=== PATIENT | female | born 1975 | race Caucasian/White ===

== ENCOUNTER 2018-07-14 15:56 | Emergency (ER) | payer MEDICAID ==
[~2018-07-14] VITALS: Ht 152.4 cm; Wt 68.0 kg
[~2018-07-14 15:56] MED LIST: CARI350T PO; DIAZ10TA PO; FENT1PAT5; HYDR4TAB4 PO; ONDA8TAB6 PO; ZOLP10TA2 PO
[2018-07-14 17:39] VITALS: BP 110/75
--- NOTE | 2018-07-14 17:40 | NUR ---
For discharge- ACI given verbalized understanding DC with [employer] for SART consult
== END 2018-07-14 17:40 ==
LOC: ER 15:58
DX: T74.21XA Adult sexual abuse, confirmed, initial encounter (principal); F41.9 Anxiety disorder, unspecified; G43.909 Migraine, unspecified, not intractable, without status migrainosus; Z88.8 Allergy status to other drugs, medicaments and biological substances; Z60.2 Problems related to living alone; Z79.899 Other long term (current) drug therapy
CPT/HCPCS: 99283; A4606; Z7610

== ENCOUNTER 2018-08-31 20:20 | Emergency (ER) | payer BC, MEDICAID ==
[~2018-08-31] VITALS: Ht 152.4 cm; Wt 68.0 kg
--- NOTE | 2018-08-31 20:30 | NUR ---
PT BIB RA. COMP OF "WHILE SHOPPING, I FELT DIZZY AND ALMOST PASSED OUT, SO I LOWERED MYSELF ONTO THE FLOOR". NO SOB NOTED. -N/V. NO NEURO DEFICITS NOTED. NO ACUTE DISTRESS AT THIS TIME. AWAITING MD LOERA.
[2018-08-31 20:43] LABS: BASOPHILS # (AUTO) 0.1 /CMM (0.0-0.2); BASOPHILS % (AUTO) 1.3 % (0.0-2.0); EOSINOPHILS % (AUTO) 6.4 % (0.0-6.0); HEMATOCRIT 28 % (33-45); HEMOGLOBIN 8.9 g/dL (11.5-14.8); LYMPHOCYTES # (AUTO) 1.9 /CMM (0.8-4.8); LYMPHOCYTES % (AUTO) 31.3 % (20.0-44.0); MEAN CORPUSCULAR HGB CONC 32 g/dl (31.0-36.0); MEAN CORPUSCULAR VOLUME 80 fL (82-100); MONOCYTES # (AUTO) 0.3 /CMM (0.1-1.30); NEUTROPHILS # (AUTO) 3.4 /CMM (1.8-8.9); PLATELET COUNT (AUTO) 395 /CMM (150-450); RED BLOOD CELL COUNT(AUTO) 3.48 MIL/uL (4.0-5.2); WHITE BLOOD COUNT (AUTO) 6.1 K/uL (4.3-11.0)
[2018-08-31 20:53] LABS: CALCIUM, SERUM 8.7 mg/dL (8.5-10.1); POTASSIUM 4.8 mmol/L (3.5-5.1)
[2018-08-31 21:35] VITALS: BP 98/72
== END 2018-08-31 21:36 | disposition home or self-care (01) ==
LOC: ER 20:21
DX: E86.0 Dehydration (principal); D64.9 Anemia, unspecified; G43.909 Migraine, unspecified, not intractable, without status migrainosus; G24.3 Spasmodic torticollis; Z88.8 Allergy status to other drugs, medicaments and biological substances; Z88.9 Allergy status to unspecified drugs, medicaments and biological substances
CPT/HCPCS: 36415; 80048-TC; 85025-TC

== ENCOUNTER 2019-01-01 03:36 | Emergency (ER) | payer MEDICAID ==
[~2019-01-01] VITALS: Ht 162.6 cm; Wt 56.7 kg
--- NOTE | 2019-01-01 03:45 | NUR ---
BIB SELF DROPPED OFF BY [facility]AXI COMING FROM [facility]. AAOX4. NAD, BREATHING EVEN AND UNLABORED. C/O NAUSEA, HEADACHE, R HIP PAIN AND R LEG PAIN. PT STATES THE SHE CAME FROM [facility] BECAUSE SHE HAD A FALL. SHE TRIED TO LOOK FOR A PHARMACY TO GET MEDICATION BUT DIDNT GET TO FILL MEDICATION BECAUSE THEY ARE CLOSE. TO ER BED 9. MD AT BEDSIDE FOR EVAL. MEDICAL RECORD FROM [facility] REQUESTED AND PT WILL SIGN RELEASE OF RECORD AUTH.
[2019-01-01] MEDS ORDERED: ONDANSETRON 4 MG TAB.RAPDIS ONE (03:55)
[2019-01-01] MEDS ORDERED: ONDANSETRON 4 MG TAB.RAPDIS SL ONE (04:00)
--- NOTE | 2019-01-01 05:05 | NUR ---
[facility]
[2019-01-01] MEDS ORDERED: KETOROLAC TROMETHAMINE INJ 30 MG/ML VIAL ONE (05:27)
[2019-01-01] MEDS ORDERED: KETOROLAC TROMETHAMINE INJ 60 MG/2 ML VIAL IM ONE (05:30)
[2019-01-01 05:49] VITALS: BP 145/88
--- NOTE | 2019-01-01 05:50 | NUR ---
Patient discharged to home in stable condition. Written and verbal after care instructions given. Patient verbalizes understanding of instruction. Pt ambulatory with a steady gait
== END 2019-01-01 05:50 | disposition home or self-care (01) ==
LOC: ER 03:42
DX: G43.909 Migraine, unspecified, not intractable, without status migrainosus (principal); G89.29 Other chronic pain; Z88.8 Allergy status to other drugs, medicaments and biological substances; Z79.899 Other long term (current) drug therapy
CPT/HCPCS: 96372; 99283; J1885; Q0162

== ENCOUNTER 2019-03-21 16:34 | Emergency (ER) | payer MEDICAID ==
[~2019-03-21] VITALS: Ht 162.6 cm; Wt 56.7 kg
--- NOTE | 2019-03-21 16:38 | NUR ---
"[id number], FROM HOME, C/O GENERALIZED BOY PAIN, WEAK TO STAND UP, OFF ON PAIN MEDICATIONS x 2 DAYS" PT ON MONITOR, VSKendell, WILLIE OTED, PENDING MD LOERA
[2019-03-21 17:30] LABS: BASOPHILS # (AUTO) 0.1 /CMM (0.0-0.2); BASOPHILS % (AUTO) 1.2 % (0.0-2.0); EOSINOPHILS % (AUTO) 0.4 % (0.0-6.0); HEMATOCRIT 33 % (33-45); HEMOGLOBIN 10.7 g/dL (11.5-14.8); LYMPHOCYTES # (AUTO) 0.9 /CMM (0.8-4.8); LYMPHOCYTES % (AUTO) 19.7 % (20.0-44.0); MEAN CORPUSCULAR HGB CONC 32 g/dl (31.0-36.0); MEAN CORPUSCULAR VOLUME 84 fL (82-100); MONOCYTES # (AUTO) 0.3 /CMM (0.1-1.30); MONOCYTES % (AUTO) 5.5 % (2.0-12.0); NEUTROPHILS # (AUTO) 3.4 /CMM (1.8-8.9); NEUTROPHILS % (AUTO) 73.2 % (43.0-81.0); PLATELET COUNT (AUTO) 310 /CMM (150-450); RED BLOOD CELL COUNT(AUTO) 3.97 MIL/uL (4.0-5.2); WHITE BLOOD COUNT (AUTO) 4.7 K/uL (4.3-11.0)
[2019-03-21 17:38] LABS: CALCIUM, SERUM 9.3 mg/dL (8.5-10.1); CARBON DIOXIDE 26 mmol/L (21-32); CHLORIDE 103 mmol/L (98-107); CREATININE 0.7 mg/dL (0.6-1.3); GLUCOSE 104 mg/dL (74-106); POTASSIUM 4.2 mmol/L (3.5-5.1); SODIUM SERUM 137 mmol/L (136-145); UREA NITROGEN, BLOOD 18 mg/dL (7-18)
[2019-03-21 17:43] LABS: ALANINE AMINOTRANSFERASE 20 U/L (12-78); ALBUMIN 3.5 g/dL (3.4-5.0); ALKALINE PHOSPHATASE 60 U/L (46-116); ASPARTATE AMINOTRANSFERASE 16 U/L (15-37); BILIRUBIN,DIRECT 0.1 mg/dL (0.0-0.2); BILIRUBIN,TOTAL 0.1 mg/dL (0.2-1.0); TOTAL PROTEIN, SERUM 7.1 g/dL (6.4-8.2)
[2019-03-21 17:45] LABS: ACETAMINOPHEN 0 ug/ml (10-30); ALCOHOL, BLOOD < 3 mg/dL (0-0); SALICYLATE 1.2 mg/dL (2.8-20.0)
--- NOTE | 2019-03-21 17:45 | NUR ---
URINE COLLECTED AND SENT TO LAB
[2019-03-21 17:55] LABS: APPEARANCE,URINE Clear (CLEAR); BILIRUBIN,URINE Negative (NEGATIVE); BLOOD, URINE Negative Ery/uL (NEGATIVE); COLOR,URINE Yellow (YELLOW); KETONES,URINE Negative (NEGATIVE); LEUKOCYTE ESTERASE ,URINE Negative (NEGATIVE); NITRITE, URINE Negative (NEGATIVE); PROTEIN,URINE Negative (NEGATIVE); UGLUCOSE Negative (NEGATIVE); UROBILINOGEN,URINE 0.2 EU/dL (0.2)
--- NOTE | 2019-03-21 19:00 | NUR ---
PT WILL BE ON ER OBS UNTIL PT IS AWAKE AND ALERT.
--- NOTE | 2019-03-21 22:42 | NUR ---
Patient discharged to home in stable condition. Written and verbal after care instructions given. Patient verbalizes understanding of instruction. IV removed. Catheter intact and site benign. Pressure and 4x4 applied to site. No bleeding noted.
--- NOTE | 2019-03-21 22:44 | NUR ---
PT PROVIDED WITH TAXI VOUCHER, PT STATES SHE LEFT HER WALLET AT HOME AND HAS NO ONE TO PICK HER UP. NURSING SUP AWARE. OK TO GIVE VOUCHER
[2019-03-21 22:46] VITALS: BP 121/70
== END 2019-03-21 22:47 | disposition home or self-care (01) ==
LOC: ER 16:38
DX: T42.4X1A Poisoning by benzodiazepines, accidental (unintentional), initial encounter (principal); T40.691A Poisoning by other narcotics, accidental (unintentional), initial encounter; G43.909 Migraine, unspecified, not intractable, without status migrainosus; F19.10 Other psychoactive substance abuse, uncomplicated; R00.0 Tachycardia, unspecified; R41.82 Altered mental status, unspecified; Z88.8 Allergy status to other drugs, medicaments and biological substances; Z88.9 Allergy status to unspecified drugs, medicaments and biological substances; Y92.89 Other specified places as the place of occurrence of the external cause
CPT/HCPCS: 36415; 70450; 71045; 80048; 80076; 80305; 80307; 80329; 81001; 84484; 84703; 85025; 93005; 99284; G0480; J7030; 81000-TC

== ENCOUNTER 2019-06-24 12:34 | Emergency (ER) | payer MEDICAID ==
[~2019-06-24] VITALS: Ht 162.6 cm; Wt 67.1 kg
[2019-06-24 12:40] VITALS: BP 120/78
== END 2019-06-24 13:27 | disposition home or self-care (01) ==
LOC: ER 12:35
DX: G43.909 Migraine, unspecified, not intractable, without status migrainosus (principal); Z88.8 Allergy status to other drugs, medicaments and biological substances; Z79.899 Other long term (current) drug therapy